=== PATIENT | female | born 1950 | race Caucasian/White ===

== ENCOUNTER 2019-03-10 02:09 | Outpatient (CLI) | payer OTHER, SELFPAY ==
--- NOTE | 2019-03-10 09:18 | DI.MAMMO_ITS ---
SYMPTOM/DIAGNOSIS: SCREENING, Z12.39 MAMMOGRAMS: Mammograms were interpreted according to the usual protocol including computer analysis with CAD system, tomosynthesis and C view imaging. Comparison is made with exams from [id number]. The breasts are composed of scattered fibroglandular densities, breast density, Category B. No suspicious masses or suspicious microcalcifications are seen. There has been no significant change. IMPRESSION: Category 1, negative mammogram. Yearly screening mammography is recommended. [facility] ASSESSMENT OF FINDINGS: Negative. Category 1. Patient will receive a letter notifying them of these results. BI-RADS category B. There are scattered areas of fibroglandular density.
== END 2019-03-10 02:29 ==
PROVIDERS: PCP Nurse Practitioner; Visit Provider Nurse Practitioner
DX: Z12.31 Encounter for screening mammogram for malignant neoplasm of breast (principal)
CPT/HCPCS: 77063; 77067

== ENCOUNTER 2019-08-21 12:53 | Outpatient (REF) | payer OTHER, SELFPAY ==
[2019-08-21 14:24] LABS: ALT 34 U/L (14-59); AST 23 U/L (15-37); Albumin 3.7 g/dL (3.4-5.0); Alkaline Phosphatase 104 U/L (46-116); Anion Gap 7.4 mmol/L (3-11); BUN 15 mg/dL (7-18); Bilirubin, Total 0.5 mg/dL (0.2-1.0); CO2 30.6 mmol/L (21.0-32.0); Calcium 9.2 mg/dL (8.5-10.1); Calculated LDL 79 mg/dL; Chloride 103 mmol/L (98-107); Cholesterol 145 mg/dL (50-200); Glucose 96 mg/dL (70-100); HDL Cholesterol 51 mg/dL (40-60); Potassium 3.7 mmol/L (3.5-5.1); Sodium 141 mmol/L (136-145); Total Protein 6.7 g/dL (6.4-8.2); Triglyceride 75 mg/dL (30-150)
== END 2019-08-21 13:13 ==
LOC: NCHCN 12:53
PROVIDERS: PCP Nurse Practitioner; Visit Provider Nurse Practitioner
DX: I10 Essential (primary) hypertension (principal)
CPT/HCPCS: 80053; 80061

== ENCOUNTER 2019-08-28 22:33 | Outpatient (REF) | payer OTHER, SELFPAY ==
[2019-08-28 18:18] LABS: Bilirubin Negative (Negative); Blood Trace-intact (Negative); Clarity Cloudy (Clear); Glucose Negative (Negative); Ketones Negative (Negative); Leukocyte Esterase Small (Negative); Nitrite Positive (Negative); Specific Gravity 1.015 (1.005-1.025); Urobilinogen 0.2 EU/dL (Up TO 0.2); pH 6.5 (5-8)
[2019-08-28 19:11] LABS: Bacteria Many HPF (Negative); C & S Indicated? Yes; Casts Negative LPF (Negative); Crystals Negative HPF (Negative); Epithelial Cells Few HPF (Negative); Mucus Negative (Negative); Other Cells Negative (Negative); WBC >50 HPF (0-5)
== END 2019-08-28 22:53 ==
LOC: NCHCN 22:33
PROVIDERS: PCP Nurse Practitioner; Visit Provider Nurse Practitioner
DX: R35.0 Frequency of micturition (principal)
CPT/HCPCS: 87077; 81003; 81015; 87086; 87186

== ENCOUNTER 2019-10-06 01:04 | Outpatient (CLI) | payer OTHER, SELFPAY ==
--- NOTE | 2019-10-06 15:58 | DI.DEXA_ITS ---
EXAM: XR DEXA BONE DENSITY W/WO ALIVIA INDICATION: SCREENING FOR OSTEOPOROSIS, Z13.820, OSTEOPENIA, M85.80. COMPARISON: DEXA BONE DENSITY WITH ALIVIA from 11/08/2010 CHEST 2 VIEWS PA,LAT from 10/30/2014 DEXA scan from 2006 and 2010. FINDINGS: The ALIVIA image shows accentuation of the normal thoracic kyphosis. The bone mineral density measureme nts of the lumbar spine correspond to a total T-score of 1.3, in the normal range. This is a signifi cant increase when compared with the previous exams, which is likely secondary to increasing density at L1 and L2 related to degenerative disc changes and endplate sclerosis. The bone mineral density m easurements of the left hip correspond to a total T-score of -1.2 and a femoral neck T-score of -1.4, in the osteopenic range. This is not significantly changed from the previous exams. The right fore arm bone mineral density shows a T-score of the distal 3rd of -0.3, in the normal range. This repres ents an 8 percent decrease when compared with 2011. IMPRESSION: Osteopenia of the left hip. Normal bone mineral density of the lumbar spine and right forearm.
== END 2019-10-06 01:24 ==
PROVIDERS: PCP Nurse Practitioner; Visit Provider Nurse Practitioner
DX: M85.88 Other specified disorders of bone density and structure, other site (principal); M51.37 Other intervertebral disc degeneration, lumbosacral region
CPT/HCPCS: 77080

== ENCOUNTER 2020-03-17 01:09 | Outpatient (CLI) | payer OTHER, SELFPAY ==
--- NOTE | 2020-03-17 15:42 | DI.MAMMO_ITS ---
EXAM: MAMMO SCREENING CLINICAL HISTORY: SCREENING, Z12.39 TECHNIQUE: Mammograms were interpreted according to the usual protocol including computer analysis w ith CAD system, tomosynthesis and C-view imaging. COMPARISON: 2010 through 2018 FINDINGS: The breasts are composed of scattered fibroglandular densities, Breast Density category B. No suspicious masses or suspicious microcalcifications are seen. No skin thickening or abnormal axillary lymph nodes are seen. There has been no significant change from prior exams. IMPRESSION: BI-RADS category 1, yearly screening mammography is recommended. Breast density category B, scattered fibroglandular densities.
== END 2020-03-17 01:29 ==
PROVIDERS: PCP Nurse Practitioner; Visit Provider Nurse Practitioner
DX: Z12.31 Encounter for screening mammogram for malignant neoplasm of breast (principal)
CPT/HCPCS: 77063; 77067

== ENCOUNTER 2021-04-05 18:26 | Outpatient (REF) | payer OTHER, SELFPAY ==
[2021-04-05 20:03] LABS: ALT 32 U/L (14-59); AST 24 U/L (15-37); Albumin 3.8 g/dL (3.4-5.0); Alkaline Phosphatase 99 U/L (46-116); Anion Gap 8.3 mmol/L (3-11); BUN 10 mg/dL (7-18); Bilirubin, Total 0.8 mg/dL (0.2-1.0); CO2 29.7 mmol/L (21.0-32.0); CREATININE 0.8 mg/dL (0.55-1.02); Calcium 9.1 mg/dL (8.5-10.1); Calculated LDL 76 mg/dL (<100); Chloride 104 mmol/L (98-107); Cholesterol 143 mg/dL (<200); Glucose 98 mg/dL (74-106); HDL Cholesterol 52 mg/dL (40-60); Potassium 3.7 mmol/L (3.5-5.1); Sodium 142 mmol/L (136-145); TSH (W/Ref FT4) 1.93 uIU/mL (0.36-3.74); Total Protein 6.9 g/dL (6.4-8.2); Triglyceride 75 mg/dL (<150)
== END 2021-04-05 18:27 | disposition home or self-care (01) ==
LOC: NCHCN 18:26
PROVIDERS: PCP Nurse Practitioner; Visit Provider Nurse Practitioner
DX: E78.5 Hyperlipidemia, unspecified (principal); I10 Essential (primary) hypertension
CPT/HCPCS: 80053; 80061; 84443

== ENCOUNTER 2021-11-15 02:38 | Outpatient (CLI) | payer MEDICARE, SELFPAY ==
--- NOTE | 2021-11-15 | DI.MAMMO_ITS ---
Exam(s) MAMMO SCREENING EXAM: MAMMO SCREENING CLINICAL HISTORY: SCREENING FOR BREAST CANCER Z12.39 TECHNIQUE: Bilateral full field digital CC and MLO mammographic images were obtained with 3D tomosyn thesis and utilizing computer aided detection (CAD). COMPARISON: Available for comparison. FINDINGS: Masses/Architectural Distortion: There is an asymmetric density in the upper right breast on the MLO view which is more prominent compared to prior examinations. There is also an asymmetric density in the medial left breast on the craniocaudad view centrally. This also appears more prominent compared to the prior examination. These area should be further evaluated with spot compression views. Ultr asound may be indicated at that time. Microcalcifications: No suspicious pleomorphic-type are seen. Skin Thickening/Nipple Retraction: None. IMPRESSION: 1. Asymmetric densities in the right left breast as described above. These area should be further ev aluated with spot compression views. 2. Ultrasound may be indicated at that time. BI-RADS Category 0 - Assessment Incomplete: Need additional imaging evaluation Breast Density - Category B - Scattered areas of fibroglandular density Breast density category C or D implies that the patient has dense breast tissue. Dense breast tissue is very common and is not abnormal but dense breast tissue can make it harder to find cancer on a ma mmogram. Also, dense breast tissue may increase their breast cancer risk. This information about the result of the mammogram report was provided to the patient to raise their awareness. Use this report when you speak with the patient about their risks for breast cancer, which includes their family hist ory. At that time, you may recommend for more screening tests (Ultrasound or MRI) as they might be us eful based on their risk. A negative radiographic report should not delay biopsy if a dominant or clinically suspicious mass is present. Up to ten percent of cancers are not identified on mammography. A negative report may reinforce clinical impression. Adenosis and dense breasts may obscure an underlying neoplasm. False positive reports average 6 to 10%. Patient will receive a letter notifying them of these results.
== END 2021-11-15 02:58 ==
PROVIDERS: PCP Nurse Practitioner Family; Visit Provider Nurse Practitioner
DX: Z12.31 Encounter for screening mammogram for malignant neoplasm of breast (principal); R92.8 Other abnormal and inconclusive findings on diagnostic imaging of breast
CPT/HCPCS: 77063; 77067

== ENCOUNTER 2021-12-02 01:02 | Outpatient (CLI) | payer MEDICARE, SELFPAY ==
--- NOTE | 2021-12-02 | DI.US_ITS ---
Exam(s) US BREAST RT LIMITED MG MAMMO SCREEN CALL BACK BI EXAM: MG MAMMO SCREEN CALL BACK BI and U/S breast RT limited CLINICAL HISTORY: F/U MAMMO,BILAT ASYMMETRIC DENSITIES. TECHNIQUE: Craniocaudal and mediolateral oblique Full Field Digital Mammography views of the right b reast with Computer Aided Diagnosis followed by Tomosynthesis and right breast ultrasound. COMPARISON: Comparison is made with prior examinations. FINDINGS: Mammography/Tomosynthesis: Masses/Architectural Distortion: None seen. Microcalcifictions: No suspicious pleomorphic-type are seen. Skin Thickening/Nipple Retraction: None. Limited right breast breast US: Echotexture: Normal appearance of the glandular tissue. Shadowing: There is a shadowing echogenic focus at the 11 o'clock position of the right breast 5 cm f rom the nipple which corresponds to a calcification on the mammogram. Cyst: There is a cluster of cysts at the 9 o'clock position of the right breast 8 cm from the nipple measuring 0.7 in aggregate. Solid lesions: None seen. Ductal dilation: None. IMPRESSION: 1. No evidence of malignancy is noted. 2. Unless there is more urgent need, follow-up screening mammography is recommended, as per [employer] guidelines. 3. The findings were discussed with the patient on the date of the examination. BI-RADS Category 2 - Benign Findings Breast Density - Category B - Scattered areas of fibroglandular density Breast density Category C or D implies that the patient has dense breast tissue. Dense breast tissue can make it harder to find cancer on a mammogram. Dense breast tissue is also associated with an incr eased risk of breast cancer. This information about the result of the mammogram report was provided to the patient to raise their awareness. Use this report when you speak with the patient about their risks for breast cancer, which includes their family history. At that time, you may recommend additional screening tests (Ultrasoun d or MRI) as these tests may add significant information. A negative radiographic report should not delay biopsy if a dominant or clinically suspicious mass is present. Up to ten percent of cancers are not identified on mammography. A negative report may reinforce clinical impression. Adenosis and dense breasts may obscure an underlying neoplasm. False positive reports average 6 to 10%. Patient will receive a letter notifying them of these results.
== END 2021-12-02 01:22 ==
LOC: DI 01:02
PROVIDERS: PCP Nurse Practitioner Family; Visit Provider Nurse Practitioner
DX: Z12.31 Encounter for screening mammogram for malignant neoplasm of breast (principal); R92.8 Other abnormal and inconclusive findings on diagnostic imaging of breast; N60.11 Diffuse cystic mastopathy of right breast; N60.81 Other benign mammary dysplasias of right breast
CPT/HCPCS: 76642; 77063; 77067

== ENCOUNTER 2022-10-09 08:04 | Emergency (ER) | payer MEDICARE, SELFPAY ==
[2022-10-09] VITALS (24 sets, daily range): BP systolic 117–176; BP diastolic 66–111; PULSE 65–92; RESP 9–22; TEMP 37–38; O2SAT 95–98
--- NOTE | 2022-10-09 08:00 | RT.EKG_ITS ---
APPROVED REPORT Exam: Resting ECG Reason for Exam: syncope Patient Location: E HR:73 bpm ECG Measurements Heart Rate 73 AXIS AZ 146 P 48 QRSd 95 QRS 38 QT 392 T 34 QTc 433 Conclusion Sinus rhythm...normal P axis, V-rate 60- 99 Probable left atrial enlargement...P >50mS, <-0.10mV V1 Low voltage, precordial leads...precordial leads <1.0mV
--- NOTE | 2022-10-09 08:15 | DI.CT_ITS ---
Exam(s) CT HEAD WO EXAM: CT HEAD WO CLINICAL HISTORY: fall, struck head. TECHNIQUE: Imaging Protocol: Axial computed tomography images with coronal and sagittal reformatted images were created and reviewed COMPARISON: No exams were available for comparison FINDINGS: Ventricles and Extra axial spaces: Normal in size and morphology for the patient's age. Hemorrhage: None. Cerebral parenchyma: Normal. Midline shift: None. Brainstem/Cerebellum: Normal. Calvarium: Normal. Visualized Paranasal sinuses/Mastoids: Clear. Soft Tissues: Unremarkable. IMPRESSION: No acute intracranial process. RADIATION DOSE DELIVERED: 717.21mGy.cm Total DLP DATA REPOSITORY: All CT scans at this facility are submitted to the National Radiology Data Registry (NRDR) Dose Index Registry (DIR) with the [employer] (A[employer]). RADIATION OPTIMIZATION: All CT scans at this facility use at least one of these dose optimization te chniques: automated exposure control; mA and/or kV adjustment per patient size (includes targeted exa ms where dose is matched to clinical indication); or iterative reconstruction.
--- NOTE | 2022-10-09 08:30 | DI.RAD_ITS ---
Exam(s) XR CHEST 2V PA LATERAL EXAM: XR CHEST 2V PA LATERAL CLINICAL HISTORY: covid+, syncopal episode TECHNIQUE: 2D digital imaging was performed. COMPARISON: CR CHEST 2 VIEWS PA,LAT from 10/30/2014 FINDINGS: HEART: Normal size. Aorta: Not dilated. PULMONARY VASCULATURE: Normal. LUNGS: Clear. PLEURAL SPACE: No pleural effusion or pneumothorax. BONE:Unremarkable for age. IMPRESSION: No acute abnormality. DATA REPOSITORY: RADIATION DOSE DELIVERED:
--- NOTE | 2022-10-09 08:35 | ED.GENADUL_ITS ---
Discharge Plan Disposition Patient Disposition: Home Condition: Improving Discharge Details Clinical Impression: COVID, Acute dehydration, Orthostatic hypotension, Hypokalemia Primary Care Provider: SERGIO MILLER ED Provider: Kaitlynn Lewis Home Meds and New Rx's Prescriptions: Continued aspirin 81 MG tablet,chewable 162 mg PO DAILY alendronate 35 MG tablet 35 mg PO DIRECTED Label Comments: weekly acyclovir 15 GM ointment 1 applic Topical PRN PRN lisinopril 10 MG tablet 10 mg PO DAILY omeprazole 20 MG capsule,delayed release(DR/EC) 20 mg PO DAILY hydrochlorothiazide 25 MG tablet 25 mg PO DAILY atorvastatin 10 mg tablet 10 mg PO DAILY Label Comments: TAKE 1 TABLET BY MOUTH ONCE DAILY triamcinolone acetonide 0.1 % cream 1 applic TOPICAL PRN PRN Label Comments: APPLY A SMALL AMOUNT TO SKIN TWICE DAILY Discharge Instructions Instructions: Dehydration (ED), COVID-19 (Coronavirus Disease 2019) (ED) Additional Instructions: The episode today was likely associated with dehydration from you being sick with COVID. Please encourage hydration. Please continue to treat your symptoms with Tylenol and/or ibuprofen to help with symptomatic management that should allow you to hydrate and mobilize more. please continue with Paxlovid as prescribed. Please follow-up with your primary care provider in the next 1 to 2 weeks for reevaluation. If you develop shortness of breath, difficulty breathing, inability stay hydrated or other new/worsening symptom please seek care urgently once again. Referrals: SERGIO MILLER, PRODUCTION [employer] [Primary Care Provider] - Discharge Data Discharge Date/Time-TO BE ENTERED AT DEPARTURE: 10/09/22 16:08 Medical Decision Making Patient is a pleasant 72-year-old female presenting today with chief complaint of fall. She reports that she is known COVID-positive, was diagnosed 3 days ago. States since then she is been very fatigued, general body aches, and generalized weakness. States that this morning she got up from bed and immediately went into the kitchen to medicate her cat. States that she began feeling more weak and warm. She denies any chest pain or palpitations. States that she then fell over striking the back right of her head. Did not actually completely lose consciousness and does remember the event that felt like she was about to pass out. States that she had has had this happen to her 1 other time when she had the flu. States he does have a headache now. No visual changes. No nausea or vomiting. Denies any midline neck tenderness. Denies any chest pain or shortness of breath. No history of DVT. On exam, patient appears nontoxic. Her vital signs are stable. She does have a history of hypertension slightly elevated. Did not take her medications today. She appears dehydrated. Lungs are clear. Normal cardiac exam. She does have a 3 cm area of swelling on the posterior right scalp. No break in the skin. No palpable skull fractur, hemotympanums, price sign. She has no midline C-spine tenderness and full range of motion. No pain elsewhere about the back ECG obtained and reviewed by Dr. Vera. No acute ischemic changes or arrythmia noted. Patient does not have any lower extremity pain, swelling, calf tenderness. She does not have any history of DVT. No recent travel or episodes of being sedentary. She not had any shortness of breath or pleuritic pain. At this time, I do not see indication of PE being the source of her syncope. More consistent with orthostatic hypotension likely dehydration. However, given age and acute illness, will obtain baseline blood work. Did consider ACS although I find this less liekly. Will obtain head CT after her traumatic fall. HEART: Normal size.? Aorta: Not dilated. PULMONARY VASCULATURE: Normal. LUNGS: Clear. ? PLEURAL SPACE: No pleural effusion or pneumothorax. BONE:Unremarkable for age.? IMPRESSION: No acute abnormality.? FINDINGS: Ventricles and Extra axial spaces: Normal in size and morphology for the patient's age. Hemorrhage: None. Cerebral parenchyma: Normal. Midline shift: None. Brainstem/Cerebellum: Normal. Calvarium: Normal. Visualized Paranasal sinuses/Mastoids: Clear. Soft Tissues: Unremarkable. IMPRESSION: No acute intracranial process .Labs rerviewed, mild hypokalemia. Will rreplenish orally. No other acute abnromality. Troponin negative x2. Orthostatics positive. She is feeling much improved after fluids. She did have an elevated temp which is downtrending with antipyretics. She was initially very hesitant to try any analgesics or antipyretics but her feeling of lightheadedness with standing did improve after hydration and treating her discomfort and fever. At this time, patient feels safe to go home. She lives with who will be able to be with her when she gets up suddenly again and assist with safety. Strict rreturn precautions discussed. Advised f/u with PCP in 1-2 weeks for reevaluation. All of her questions and concerns were addressed, she is in agreement with this plan. States patient is orthostatic HPI General Date/Time Provider Initiated Documentation: 10/09/22 08:05 . Limitations to Documentation: no limitations . Information obtained by: patient and RN notes reviewed . History of Present Illness 72 year old F presents to the emergency department with the chief complaint of COVID +, near syncopal episode, struck head, described as moderate, Quality is described as aching, and is localized to the head. Patient reports no radiation. Patient started experiencing this minute(s) an d it has been constant. No relieving factors improve symptom(s), Other factors that worsen symptoms (stood up quickly from bed, has had similar episode in ) . Patient notes cough, fever/chills, headaches, malaise and syncope; denies confusion, chest pain, nausea/vomiting, rash, shortness of breath and weakness. Patient did receive the following treatments prior to arrival, none Related Data Home Medications Medication Instructions Recorded Confirmed acyclovir 5 % topical ointment 1 applic topical PRN PRN 10/30/14 10/09/22 alendronate 35 mg tablet 35 mg PO DIRECTED 10/30/14 04/16/17 hydrochlorothiazide 25 mg tablet 25 mg PO DAILY 10/30/14 10/09/22 lisinopril 10 mg tablet 10 mg PO DAILY 10/30/14 04/16/17 omeprazole 20 mg capsule,delayed 20 mg PO DAILY 10/30/14 10/09/22 release aspirin 81 mg chewable tablet 162 mg PO DAILY 03/22/17 10/09/22 atorvastatin 10 mg tablet 10 mg PO DAILY 10/09/22 10/09/22 triamcinolone acetonide 0.1 % 1 applic topical PRN PRN 10/09/22 10/09/22 topical cream Allergies Allergy/AdvReac Type Severity Reaction Status Date / Time adhesive Allergy Mild Skin Rash Unverified 10/09/22 08:17 latex Allergy Mild Skin Rash Unverified 10/09/22 08:17 povidone-iodine Allergy Mild Skin Rash Unverified 10/09/22 08:17 [From Betadine] soap [From Betadine] Allergy Mild Skin Rash Unverified 10/09/22 08:17 General Stated Complaint: [id number] PAULETTE: 3 Review of Systems Constitutional Constitutional: Reports as per HPI Eyes Eyes: Reports as per HPI, Denies eye discharge and Denies irritation ENT Ears, Nose, Mouth, and Throat: Reports as per HPI Cardiovascular Cardiovascular: Reports as per HPI, Denies chest pain and Denies dyspnea Respiratory Respiratory: Reports as per HPI and Denies dyspnea Gastrointestinal Gastrointestinal: Reports as per HPI, Denies abdominal pain, Denies change in bowel habits, Denies nausea and Denies vomiting Integumentary/Breasts Skin/Breast: Reports as per HPI and Denies rash Neurologic Neurologic: Reports as per HPI PFSH All Active Problems (Updated 10/09/22 @ 15:47 by TEJAL Lindsay) COVID (Acute) Acute dehydration (Acute) Orthostatic hypotension (Acute) Hypokalemia (Acute) Tinnitus, bilateral (Acute) Asymmetrical sensorineural hearing loss (Acute) Surgical History (Updated 08/07/18 @ 14:34 by [employer] [place]) Colonoscopy - IV Sedation (04/16/17) Vaginal hysterectomy Social History Smoking/Tobacco Use Status: Never Smoking risk assessment performed?: Yes Alcohol Intake: current Alcohol Intake frequency: holidays/special occasions only Drug use: Never Substance use type: does not use Do you feel safe at home: Yes Do you feel safe in your relationship?: Yes Exam Const General: cooperative, healthy appearing, comfortable, no acute distress, well developed and well groomed Nutritional Appearance: average body habitus and well nourished Orientation: alert and awake [facility] Head: normal to inspection, normocephalic, no Price's sign, contusion right occipital, no lacerations, no occipital foramen tenderness, no palpable skull fracture, no raccoon eyes, scalp tenderness and No periorbital ecchymosis Ears: hearing grossly normal bilaterally, external ears normal and TM's normal bilaterally General nose exam: external nose normal and nares normal Face and sinus: normal facial exam, sinuses nontender and face symmetric Mouth: oral mucosae normal, lip normal, tongue normal, oropharynx normal and moist mucous membranes Teeth and gingiva: dentition normal Throat: posterior oropharynx normal, tonsils normal and uvula midline Eyes General: appearance normal, both eyes and all related structures Visual Berg: normal visual berg by confrontation Alignment and Position: alignment normal Pupils: PERRL, normal by confrontation and accommodation normal EOM: EOM intact bilaterally Neck Neck: normal visual inspection, full ROM, no lymphadenopathy and no meningeal signs Resp Effort & Inspection: normal respiratory effort, able to speak in complete sentences and no respiratory distress Auscultation: clear to auscultation bilaterally, no rales, no rhonchi and no wheezes Cardio Rate: regular rate Rhythm: regular rhythm Heart Sounds: S1 normal and S2 normal Back/Spine/Pelvis Cervical Spine: normal cervical lordosis, cervical ROM normal, No cervical m uscular tenderness, No pain with cervical ROM, No cervical spinal tenderness and No step off deformity Thoracic/Lumbar Spine: thoracic and lumbar spine normal to inspection Skin General skin exam: no rashes or lesions noted Neuro General: patient alert and patient awake Cranial Nerves: CN's II-XI intact bilaterally Cognition: normal cognition Speech: speech normal Gait: normal gait Motor: muscle tone normal throughout, strength 5/5 throughout, no pronator drift and no movement abnormalities noted Sensory Exam: no sensory deficits noted Coordination: [id number] test normal and [id number] test normal Psych Appearance: grossly normal and well kempt Mental Status: mental status grossly normal Speech and Movement: speech and movement normal Course Vital Signs Vital signs: Vital Signs Temperature 37 C 10/09/22 08:13 Pulse 76 10/09/22 08:13 Respiratory Rate 18 10/09/22 08:13 Blood Pressure 141/66 H 10/09/22 08:13 Pulse Oximetry 95 10/09/22 08:13 Temperature 37 C 10/09/22 08:13 Temperature Source Temporal Artery Scan 10/09/22 08:13 Pulse 76 10/09/22 08:13 Respiratory Rate 18 10/09/22 08:21 Respiratory Effort Non-Labored 10/09/22 08:21 Respiratory Depth Normal 10/09/22 08:21 Blood Pressure 141/66 H 10/09/22 08:13 Blood Pressure Position Sitting 10/09/22 08:13 Pulse Oximetry 95 10/09/22 08:13 Oxygen Delivery Method Room Air 10/09/22 08:13 Oxygen Flow Rate 0 10/09/22 08:13 PAWSS Have you Been Recently Intoxicated or Drunk Within the Last 30 days?: No Have you Ever Experienced Previous Episodes of Alcohol Withdrawal?: No Have you ever Experienced Withdrawal Seizures?: No Have you ever Experienced Delirium Tremens(DT)s?: No Have you ever undergone Alcohol Rehabilitation Treatment (i.e, inpt ot outpatient treatment programs)?: No Have you ever Experienced Blackouts?: No Have you ever Combined Alcohol with other Downers within the last 90 days?: No Have you ever Combined Alcohol with any other Substance of Abuse during the last 90 days?: No Positive Blood Alcohol level on Presentation? [PCS.BAL]: No Evidence of Increased Autonomic Activity (i.e. HR>120, tremor, sweating, agitation, nausea)?: No Result: 0
[2022-10-09] MEDS: Lactated Ringers 1,000 ML 1000 ML IV ×2 (08:53→11:43)
[2022-10-09 08:55] LABS: Abs Immature Grans 0.03 10^3/uL (0.0-0.06); Absolute Basophil Count 0.04 10^3/uL (0.0-0.2); Absolute Eosinophil Count 0.04 10^3/uL (0.0-0.7); Absolute Lymphocyte Count 0.77 10^3/uL (1.2-3.4); Absolute Monocyte Count 0.72 10^3/uL (0.1-0.8); Absolute Neutrophil Count 5.66 10^3/uL (1.2-6.7); Basophils % 0.6; Eosinophils % 0.6; HCT 38.9 % (36.0-46.0); HGB 12.9 g/dL (11.2-15.7); Immature Grans % 0.4; Lymphocytes % 10.6; MCH 29.6 pg (27.0-33.0); MCHC 33.2 % (32.0-36.0); MCV 89 fL (80-95); MPV 9.2 fL (8.0-11.0); Monocytes % 9.9; Neutrophils % 77.9; Platelet Count 248 10^3/uL (130-400); RBC 4.36 10^6/uL (3.93-5.22); RDW 12.1 % (11.7-14.6); RDW-SD 39.8 fL; WBC 7.26 10^3/uL (4.4-10.8)
[2022-10-09 09:35] LABS: ALT 33 U/L (14-59); AST 31 U/L (15-37); Albumin 3.5 g/dL (3.4-5.0); Alkaline Phosphatase 92 U/L (46-116); Anion Gap 7.8 mmol/L (3-11); BUN 12 mg/dL (7-18); CO2 30.2 mmol/L (21.0-32.0); Calcium 8.8 mg/dL (8.5-10.1); Chloride 100 mmol/L (98-107); Estimated GFR 59.49 (mL/min/1.73m2); Glucose 113 mg/dL (74-106); Magnesium 1.9 mg/dL (1.8-2.4); Potassium 3.3 mmol/L (3.5-5.1); Sodium 138 mmol/L (136-145); Troponin I < 50 ng/L (<or=60)
[2022-10-09] MEDS: Potassium Chloride 20 MEQ TABCR PO (09:58)
[2022-10-09 13:08] LABS: Troponin I < 50 ng/L (<or=60)
[2022-10-09] MEDS: Acetaminophen 500 MG TAB 1000 MG PO (13:48)
[2022-10-09] MEDS: Ibuprofen 600 MG TAB PO (15:32)
== END 2022-10-09 16:08 | disposition home or self-care (01) ==
PROVIDERS: Emergency Provider Physician Assistant; PCP Nurse Practitioner Family
DX: U07.1 COVID-19 (principal); E86.0 Dehydration; I95.1 Orthostatic hypotension; E87.6 Hypokalemia; I10 Essential (primary) hypertension; S00.03XA Contusion of scalp, initial encounter; W19.XXXA Unspecified fall, initial encounter; W22.8XXA Striking against or struck by other objects, initial encounter
CPT/HCPCS: 36415; 80053; 93005; 96360; 96361; 99284; 70450; 71046; 83735; 84484; 85025; 93010

== ENCOUNTER 2023-04-16 13:26 | Outpatient (REF) | payer MEDICARE, SELFPAY ==
[2023-04-16 16:45] LABS: COMMENT (LAB VIEW ONLY) 91.45 mg/dL; Microalb ug/mg Crea 7.2 ug/mg Cr
== END 2023-04-16 13:27 | disposition home or self-care (01) ==
LOC: NCHCN 13:26
PROVIDERS: PCP Nurse Practitioner Family; Visit Provider Nurse Practitioner Family
DX: Z00.00 Encounter for general adult medical examination without abnormal findings (principal)
CPT/HCPCS: 82043; 82570

== ENCOUNTER 2023-12-10 18:05 | Outpatient (REF) | payer MEDICARE, SELFPAY ==
[2023-12-10 18:34] LABS: ALT 24 U/L (14-59); AST 24 U/L (15-37); Albumin 3.9 g/dL (3.4-5.0); Alkaline Phosphatase 93 U/L (46-116); Anion Gap 8.6 mmol/L (3-11); BUN 8 mg/dL (7-18); Bilirubin, Total 0.8 mg/dL (0.2-1.0); CO2 29.4 mmol/L (21.0-32.0); CREATININE 0.8 mg/dL (0.55-1.02); Calcium 9.6 mg/dL (8.5-10.1); Calculated LDL 84 mg/dL (<100); Chloride 102 mmol/L (98-107); Cholesterol 152 mg/dL (<200); Estimated GFR 77.27 (mL/min/1.73m2); Glucose 102 mg/dL (74-106); HDL Cholesterol 56 mg/dL (40-60); Sodium 140 mmol/L (136-145); Total Protein 7.1 g/dL (6.4-8.2); Triglyceride 62 mg/dL (<150)
== END 2023-12-10 18:06 | disposition home or self-care (01) ==
LOC: NCHCN 18:05
PROVIDERS: PCP Nurse Practitioner Family; Referring Provider Nurse Practitioner Family; Visit Provider Nurse Practitioner Family
DX: E78.5 Hyperlipidemia, unspecified (principal); I10 Essential (primary) hypertension
CPT/HCPCS: 80053; 80061

== ENCOUNTER → 2023-12-12 01:03 | Outpatient (CLI) | payer MEDICARE, SELFPAY ==
--- NOTE | 2023-12-12 | DI.MAMMO_ITS ---
Exam(s) MAMMO SCREENING EXAM: MAMMO SCREENING CLINICAL HISTORY: SCREENING, Z12.39. TECHNIQUE: Bilateral full field digital CC and MLO mammographic images were obtained with 3D tomosyn thesis and utilizing computer aided detection (CAD). COMPARISON: Prior mammograms were reviewed. FINDINGS: There has been no significant change in the appearance and distribution of the fibroglandular tissue. There are no new spiculated masses nor malignant appearing microcalcification groups. There is no significant architectural distortion nor skin thickening-retraction. IMPRESSION: No radiographic evidence of malignancy. BI-RADS Category 1 - Negative Breast Density - Category B - Scattered areas of fibroglandular density Breast density Category C or D implies that the patient has dense breast tissue. Dense breast tissue can make it harder to find cancer on a mammogram. Dense breast tissue is also associated with an incr eased risk of breast cancer. This information about the result of the mammogram report was provided to the patient to raise their awareness. Use this report when you speak with the patient about their risks for breast cancer, which includes their family history. At that time, you may recommend additional screening tests (Ultrasoun d or MRI) as these tests may add significant information. A negative radiographic report should not delay biopsy if a dominant or clinically suspicious mass is present. Up to ten percent of cancers are not identified on mammography. A negative report may reinforce clinical impression. Adenosis and dense breasts may obscure an underlying neoplasm. False positive reports average 6 to 10%. Patient will receive a letter notifying them of these results.
== END ==
PROVIDERS: PCP Nurse Practitioner Family; Visit Provider Nurse Practitioner Family
DX: Z12.31 Encounter for screening mammogram for malignant neoplasm of breast (principal)
CPT/HCPCS: 77063; 77067

== ENCOUNTER → 2024-04-08 08:44 | Outpatient (BNVA) | payer MEDICARE, SELFPAY | PROVIDERS: PCP Nurse Practitioner Family; Referring Provider Nurse Practitioner Family; Visit Provider Podiatrist | DX: B35.1 Tinea unguium (principal); L60.3 Nail dystrophy | CPT/HCPCS: 99214 ==

== ENCOUNTER → 2024-08-05 09:19 | Outpatient (BNVA) | payer MEDICARE, SELFPAY | PROVIDERS: PCP Nurse Practitioner Family; Referring Provider Nurse Practitioner Family; Visit Provider Podiatrist | DX: L60.3 Nail dystrophy (principal); B35.1 Tinea unguium; M79.671 Pain in right foot; M79.672 Pain in left foot; L84 Corns and callosities | CPT/HCPCS: 11056; 11720 ==

== ENCOUNTER → 2024-12-02 09:15 | Outpatient (BNVA) | payer MEDICARE, SELFPAY | PROVIDERS: PCP Nurse Practitioner Family; Referring Provider Nurse Practitioner Family; Visit Provider Podiatrist | DX: L60.3 Nail dystrophy (principal); B35.1 Tinea unguium; M79.671 Pain in right foot; M79.672 Pain in left foot | CPT/HCPCS: 99214 ==

== ENCOUNTER 2024-12-11 11:51 | Outpatient (REF) | payer MEDICARE, SELFPAY ==
[2024-12-11 15:17] LABS: ALT 27 U/L (14-59); AST 22 U/L (15-37); Albumin 3.9 g/dL (3.4-5.0); Alkaline Phosphatase 103 U/L (46-116); Anion Gap 3.7 mmol/L (3-11); BUN 12 mg/dL (7-18); Bilirubin, Total 0.75 mg/dL (0.2-1.0); CO2 31.3 mmol/L (21.0-32.0); CREATININE 0.7 mg/dL (0.55-1.02); Calcium 9.4 mg/dL (8.5-10.1); Chloride 101 mmol/L (98-107); Estimated GFR 90.14 (mL/min/1.73m2); Glucose 95 mg/dL (74-106); Potassium 3.9 mmol/L (3.5-5.1); Sodium 136 mmol/L (136-145); Total Protein 6.8 g/dL (6.4-8.2)
== END 2024-12-11 11:52 | disposition home or self-care (01) ==
LOC: NCHCN 11:51
PROVIDERS: PCP Nurse Practitioner Family; Visit Provider Nurse Practitioner Family
DX: I10 Essential (primary) hypertension (principal)
CPT/HCPCS: 80053

== ENCOUNTER 2024-12-12 08:32 | Outpatient (CLI) | payer MEDICARE, SELFPAY ==
--- NOTE | 2024-12-12 | DI.RAD_ITS ---
Exam(s) XR HIP LT COMPLETE AP PELVIS EXAM: XR HIP LT COMPLETE AP PELVIS CLINICAL HISTORY: LT HIP PAIN, M25.552, LOW BACK PAIN, FAILED PT,? ARTHRITIS. TECHNIQUE: 2D digital imaging was performed. COMPARISON: No exams were available for comparison FINDINGS: Two views No evidence of pelvic nor hip fractures. Additional frog-lateral view of the left hip reveals no jason nt space narrowing but a tiny osteophyte on the femoral head side. Bone density is normal. No osseous lesions. No evidence of avascular necrosis. Sacroiliac joints a ppear unremarkable. IMPRESSION: Mild degenerative changes in the left hip DATA REPOSITORY: RADIATION DOSE DELIVERED:
== END 2024-12-12 08:52 ==
PROVIDERS: PCP Nurse Practitioner Family; Visit Provider Nurse Practitioner Family
DX: M16.12 Unilateral primary osteoarthritis, left hip (principal)
CPT/HCPCS: 73502

== ENCOUNTER → 2025-01-26 09:12 | Outpatient (BNVA) | payer MEDICARE, SELFPAY | PROVIDERS: PCP Nurse Practitioner Family; Referring Provider Nurse Practitioner Family | DX: M70.62 Trochanteric bursitis, left hip (principal) | CPT/HCPCS: 20610; 99213; J1010 ==

== ENCOUNTER → 2025-03-23 08:41 | Outpatient (BNVA) | payer MEDICARE, SELFPAY | PROVIDERS: PCP Nurse Practitioner Family; Referring Provider Nurse Practitioner Family; Visit Provider Student in an Organized Health Care Education/Training Program | DX: M70.62 Trochanteric bursitis, left hip (principal); M25.852 Other specified joint disorders, left hip | CPT/HCPCS: 99213 ==

== ENCOUNTER → 2025-03-31 09:38 | Outpatient (BNVA) | payer MEDICARE, SELFPAY | PROVIDERS: PCP Nurse Practitioner Family; Referring Provider Nurse Practitioner Family; Visit Provider Podiatrist | DX: L60.3 Nail dystrophy (principal); B35.1 Tinea unguium; M79.671 Pain in right foot; M79.672 Pain in left foot | CPT/HCPCS: 99213 ==

== ENCOUNTER 2025-04-16 00:42 | Outpatient (CLI) | payer MEDICARE, SELFPAY ==
--- NOTE | 2025-04-16 07:30 | DI.MRI_ITS ---
Exam(s) MR LOWER JOINT LT WO EXAM: MR LOWER JOINT LT WO CLINICAL HISTORY: PAIN,FEMORAL ACETABULAR IMPINGEMENT, LT HIP TROCHANTERIC BURSITIS TECHNIQUE: Multiplanar multisequence MRI of Pelvis was performed COMPARISON: US ABDOMEN ULTRASOUND from 10/13/2008 CR XR HIP LT COMPLETE AP PELVIS from 12/12/2024 FINDINGS: Bones: There is no fracture or contusion pattern. No bone marrow edema is seen. Joints: There are small bilateral symmetric hip joint effusions. The SI joints and symphysis pubis are well maintained. Musculotendinous structures: Musculotendinous structures demonstrate no abnormality. There is fluid adjacent to both greater trochanters which could indicate trochanteric bursitis. There is edema within the left distal gluteus medius tendon which could indicate partial tear versus tendinitis. There also appears a mildly increased signal within the distal muscle. Intrapelvic structures: Hysterectomy. Simple appearing cyst in the left adnexal region measuring 2.4 by 3 cm. IMPRESSION: Partial tear versus tendinitis of the gluteus medius. Small bilateral joint effusions. Small amount of fluid adjacent to both greater trochanters could indicate trochanteric bursitis. 3 centimeter left ovarian cyst appears simple. Pelvic ultrasound follow-up could be considered. DATA REPOSITORY:
== END 2025-04-16 01:02 ==
PROVIDERS: PCP Nurse Practitioner Family; Visit Provider Student in an Organized Health Care Education/Training Program
DX: M25.852 Other specified joint disorders, left hip (principal); M70.62 Trochanteric bursitis, left hip
CPT/HCPCS: 73721

== ENCOUNTER → 2025-04-20 08:03 | Outpatient (BNVA) | payer MEDICARE, SELFPAY | PROVIDERS: PCP Nurse Practitioner Family; Referring Provider Nurse Practitioner Family; Visit Provider Student in an Organized Health Care Education/Training Program | DX: M70.62 Trochanteric bursitis, left hip (principal) | CPT/HCPCS: 99213 ==

== ENCOUNTER → 2025-05-05 13:18 | Outpatient (BNVA) | payer MEDICARE, SELFPAY | PROVIDERS: PCP Nurse Practitioner Family; Referring Provider Nurse Practitioner Family; Visit Provider Student in an Organized Health Care Education/Training Program | DX: M70.62 Trochanteric bursitis, left hip (principal); M76.32 Iliotibial band syndrome, left leg; I10 Essential (primary) hypertension | CPT/HCPCS: 99214 ==

== ENCOUNTER 2025-06-12 06:04 | Day surgery (SDC) | payer MEDICARE, SELFPAY ==
[2025-06-12] VITALS (21 sets, daily range): BP systolic 110–209; BP diastolic 47–83; PULSE 48–68; RESP 8–18; TEMP 36.1–36.6; O2SAT 93–100; BMI 29.4
[2025-06-12] MEDS: Lactated Ringers 1,000 ML 30 ML IV (06:48)
--- NOTE | 2025-06-12 07:05 | W.ANESPRE ---
General Info Date of Service Date Performed: 06/12/25 Height: 5 ft 3.5 in Weight: 76.6 kg Body Mass Index (BMI): 29.4 Surgical Procedure: Operation Date: 06/12/25 07:50 Proposed Procedure Side Surgeon p Endoscopic Iliotibial Band Release w/Trochanteric Bursectomy, Possible Gluteal Tendon Release Left Armaan Barrientos MD Actual Procedure Side Surgeon p Endoscopic Iliotibial Band Release w/Trochanteric Bursectomy, Possible Gluteal Tendon Release Left Armaan Barrientos MD Pre-Op Diagnosis Post-Op Diagnosis 1. Trochanteric bursitis, left hip 2. Iliotibial band syndrome affecting left lower leg Meds Allergies and Home Medications Allergies Allergy/AdvReac Type Severity Reaction Status Date / Time adhesive Allergy Mild Skin Rash Verified 06/12/25 07:27 latex Allergy Mild Skin Rash Verified 06/12/25 07:27 povidone-iodine (From Allergy Mild Skin Rash Verified 06/12/25 07:27 Betadine) soap (From Betadine) Allergy Mild Skin Rash Verified 06/12/25 07:27 Home Medication ?Medication ?Instructions ?Recorded hydrochlorothiazide 25 mg tablet 25 mg PO DAILY 10/30/14 omeprazole 20 mg capsule,delayed 20 mg PO DAILY 10/30/14 release atorvastatin 10 mg tablet 10 mg PO DAILY 10/09/22 triamcinolone acetonide 0.1 % 1 applic topical PRN PRN 10/09/22 topical cream cholecalciferol (vitamin D3) 25 25 mcg PO DAILY 03/14/24 mcg (1,000 unit) capsule diclofenac sodium 1 % topical gel 2 g topical QID 03/14/24 (Arthritis Pain (diclofenac)) varicella-zoster glycoE [id number] 0.5 ml IM ONCE 03/14/24 adj(PF) 50 mcg/0.5 mL IM susp, kit (Shingrix (PF)) ketoconazole 2 % topical cream 1 applic topical DAILY #120 grams 04/08/24 varicella-zoster glycoE vacc-[id number] 0.5 ml IM ONCE 08/04/24 adj(PF) 50 mcg/0.5 mL IM susp, kit (Shingrix (PF)) Current Visit Medications: Current Medications Generic Name Dose Route Start Last Admin Trade Name Freq PRN Reason Stop Dose Admin Ringer's Solution 1,000 mls @ 30 mls/hr 06/12/25 06:00 06/12/25 06:48 IV 07/11/25 23:59 30 mls/hr INFUSION SANDEE Administration Cefazolin Sodium/Dextrose 2 gm in 50 mls @ 100 mls/hr 06/12/25 06:00 Ancef Duplex IVPB 07/11/25 23:59 PREOP SANDEE Tranexamic Acid/Sodium Chloride 1,000 mg in 100 mls @ 600 mls/hr 06/12/25 06:00 IVPB 07/11/25 23:59 PREOP SANDEE IV Miscellaneous Supplies 1 each 06/12/25 06:00 Iv Access IV 07/11/25 23:59 DIRECTED SANDEE Sodium Chloride 0 ml 06/12/25 06:00 Normal Saline Flush 10 Ml Syr IV 07/11/25 23:59 PRN PRN Sodium Chloride 0 ml 06/12/25 06:00 Normal Saline 10 Ml Vial IJ 07/11/25 23:59 DIRECTED PRN Sterile Water 0 ml 06/12/25 06:00 Water,Injection,Sterile 10 Ml Vial IJ 07/11/25 23:59 DIRECTED PRN PFSH Active Problems Active Problems: Problem Status Onset Code Iliotibial band syndrome affecting left lower leg Acute M76.32 Femoral acetabular impingement Acute M25.859 Trochanteric bursitis, left hip Acute M70.62 Osteopenia of left hip Acute M85.852 Essential hypertension Acute I10 Plantar verruca Acute B07.0 Nail dystrophy Acute L60.3 Onychomycosis Acute B35.1 Pain in left lumbar region of back Acute M54.50 Pain of left hip joint Acute M25.552 Osteopenia Acute M85.80 GERD (gastroesophageal reflux disease) Chronic K21.9 Bilateral tinnitus Acute H93.13 Hyperlipemia Acute E78.5 COVID Acute U07.1 Tinnitus, bilateral Acute H93.13 Asymmetrical sensorineural hearing loss Acute H90.3 Medical History Medical History Enthesopathy Fibrocystic breast disease (FCBD) Family hx colonic polyps Senile hyperkeratosis Actinic keratosis Surgical History Surgical History Vaginal hysterectomy Colonoscopy - IV Sedation (04/16/17) Tobacco Smoking/Tobacco Use Status: Never Passive smoking exposure: Yes Alcohol Alcohol Intake: current Alcohol intake frequency: holidays/special occasions only Substance Use Substance use: Never Substance use type: does not use Vital Signs and Lab Results Vital Signs Most Recent Vital Signs in EMR: Most Recent Vital Signs Temp Pulse Resp BP Pulse Ox 36.6 C 62 17 209/83 H 98 06/12/25 06:13 06/12/25 06:13 06/12/25 06:13 06/12/25 06:13 06/12/25 06:13 Imaging and Studies Imaging and Studies Study information below may be from another EMR and interpreted by another provider. Please see original notes in EMR for more complete details. EKG Summary: 10/09/22 Conclusion Sinus rhythm...normal P axis, V-rate 60- 99 Probable left atrial enlargement...P >50mS, <-0.10mV V1 Low voltage, precordial leads...precordial leads <1.0mV Anesthesia Assessment and Plan Anesthesia History Personal History: No History of Anesthesia Complications Family History: No Family History of Anesthesia Complications Exercise Tolerance Exercise Tolerance: Metabolic Equivalents>4 Pertinent Negatives Pertinent Negatives: No Symptoms of GERD, No Major Cardiovascular Symptoms or Complaints, No Major Pulmonary Symptoms or Complaints and No History of CVA/TIA Cardiac & Pulmonary Exam Cardiac Exam: Normal S1/S2 Heart Sounds Pulmonary Exam: Clear Bilateral Breath Sounds Implantable Cardiac Device Does patient have a Pacemaker or an ICD?: No Airway Exam Known Difficult Airway: No Mallampati Class: 1 Mouth Opening: Normal (> 3cm) Thyromental Distance: Greater than 3 cm Neck Range of Motion: Full ROM Neck Circumference: Normal Teeth Condition: Normal Dentition ASA Classification ASA Score: ASA 2 Emergency Case?: No NPO Status NPO Status: NPO Clears >2 hours, Solids >8 hours Anesthesia Plan Resuscitation Status: Full Code Anesthesia Technique: General Anesthesia Airway Planned: LMA Monitors Used: Standard Monitors Preoperative Comments:: Elevated BP, white coat syndrome.
--- NOTE | 2025-06-12 07:11 | W.PM.DSUDISC ---
Date of service: 06/12/25 Discharge Plan Disposition Patient Disposition: Home Condition: Stable Discharge Details Attending Provider: Armaan Barrientos Primary Care Provider: SERGIO MILLER Home Meds and New Rx's Prescriptions: New naproxen 250 mg tablet 250 mg PO BID PRN (Reason: moderate pain and swelling) Qty: 20 0RF Rx Instructions: take with a meal oxycodone 5 mg tablet 5 mg PO .q4-6h MDD 30 mg PRN (Reason: severe pain) Qty: 9 0RF aspirin 81 mg capsule 81 mg PO DAILY 14 Days Qty: 14 0RF Continued diclofenac sodium [Arthritis Pain (diclofenac)] 1 % gel 2 g topical QID Rx Instructions: apply to single elbow, wrist or hand; for hand includes palm/fingers/back of hand Shingrix (PF) 50 mcg/0.5 mL suspension for reconstitution 0.5 ml IM ONCE Rx Instructions: as a single dose cholecalciferol (vitamin D3) 25 mcg (1,000 unit) capsule 25 mcg PO DAILY ketoconazole 2 % cream 1 applic topical DAILY Qty: 120 6RF Rx Instructions: Apply to toenails once daily Shingrix (PF) 50 mcg/0.5 mL suspension for reconstitution 0.5 ml IM ONCE Rx Instructions: as a single dose omeprazole 20 MG capsule,delayed release(DR/EC) 20 mg PO DAILY hydrochlorothiazide 25 MG tablet 25 mg PO DAILY atorvastatin 10 mg tablet 10 mg PO DAILY Patient Comments: TAKE 1 TABLET BY MOUTH ONCE DAILY triamcinolone acetonide 0.1 % cream 1 applic TOPICAL PRN PRN Patient Comments: APPLY A SMALL AMOUNT TO SKIN TWICE DAILY Discharge Instructions Additional Instructions: Surgery: Left hip endoscopy with iliotibial band release and trochanteric bursectomy 06/12/25 Activity: Weightbearing as tolerated. May use crutches or walker as needed for a few days. Gradually advance to full range of motion and activity over the next few weeks. A physical therapy prescription will be provided separately in the office at follow up if needed. Prescriptions: Aspirin 81 mg take 1 daily to prevent a blood clot for 2 weeks, starting tomorrow Naproxen 250 mg take 1 every 12 hours with a meal as needed for moderate pain Oxycodone 5 mg take 1 every 4-6 hours as needed for severe pain You may use [id number] Tylenol (acetaminophen) as needed for mild pain. These pain medications may be taken all at once or in different combinations as needed. Also, recommend Colace (docusate) as a stool softener as surgery and pain medicine cause constipation. You may try [id number] diphenhydramine (Benadryl) 25-50 mg nightly as a sleep aid Dressings: Leave dressing in place for 3 days. May then remove and leave open to air or cover incisions with Band-Aids. Leave the sticky Steri-Strips in place until they fall off or remove them after you shower. May shower after 5 days. Follow-up: 10-[address] Barrientos You may take off the leg compression stockings this evening at home. You may also leave them on a few days longer if you have a history of leg swelling or edema. Let us know right away if you develop any redness, drainage, fevers, chest pain, or trouble breathing. Do not drink alcohol or drive for at least 24 hours after anesthesia. Please call the office during business hours with any questions or concerns. Stand Alone Forms: Anesthesia Discharge Inst., Anais Jewell (DSU) Referrals: Armaan Barrientos MD [ [facility] STAFF PHYSICIAN, Orthopaedic Surgical] - 06/23/25 1:45 pm Discharge Orders Discharge Orders: Discharge Order (Routine); Ordered 06/12/25 Ordered By: Zenia Garcia DS: Diagnosis Discharge Diagnosis (1) Trochanteric bursitis, left hip: Status: Acute (2) Iliotibial band syndrome affecting left lower leg: Status: Acute
--- NOTE | 2025-06-12 07:18 | W.PM.OP ---
Operative Note Operative Note PRE-OP DIAGNOSIS: Left hip 1. Iliotibial band syndrome 2. Trochanteric bursitis 3. Gluteal tendonopathy POST-OP DIAGNOSIS: same PROCEDURE: Left hip endoscopic 1. Iiliotibial band release, CPT# 74376 2. Trochanteric bursectomy, CPT# 30337 SURGEON: Armaan Barrientos ANESTHESIA TYPE: Local By Surgeon and General LMA/ETT Refer to Anesthesia Record ESTIMATED BLOOD LOSS: 5 Patient was transported to: PACU Patient's condition: stable Indications: Please see complete medical record for details. Findings: Thickened iliotibial band. Abundant inflamed trochanteric bursitis. Intact gluteal tendons. Procedure Description: In the operating room, general anesthesia was induced. The patient was positioned supine on the [place] operating room table. All bony prominences were well-padded. Preoperative antibiotics were administered. The hip was prepped and draped in the usual sterile fashion. The correct patient, procedure, and side of the procedure were all verified prior to incision. 30 cc of 0.25% bupivacaine containing epinephrine was infiltrated about the subcutaneous tissues for the planned anterior lateral and distal anterolateral portals as well as deeply over the greater trochanter. A knife was used to incise the skin for the anterior lateral and distal anterolateral portals followed by blunt dissection subcutaneously. Under fluoroscopic guidance, a switching stick and arthroscope were inserted localizing the iliotibial band over the greater trochanter. Blunt dissection and the mechanical shaver were used to resect fat and overlying tissue about the center of the iliotibial band and carefully expose the anterior and posterior margins. Once there was adequate exposure of the IT band, the greater trochanter was again localized under fluoroscopic guidance with a spinal needle inserted through the skin down to bone. This central area was marked using the radiofrequency ablator. A [employer] blade was brought in and used to create a 2 cm longitudinal incision in line with the IT band fibers as well as extending it in a cruciate fashion with 2 cm incisions anteriorly and posteriorly. The radiofrequency ablator was used to achieve hemostasis. The mechanical shaver was then used to debride the IT band released edges exposing the trochanteric bursa. The mechanical shaver was then used to excise the trochanteric bursa taking care to protect musculature about the margins of the greater trochanter as well as neurovascular structures especially posteriorly. There was excellent visualization of the vastus lateralis as well as gluteus medius confirming appropriate bursa excision. The gluteus gage was also visualized intact. The hip was brought through range of motion including internal and external rotation and there was no impinging iliotibial band tissue or remaining pathologic bursa. The viewing and working portals were switched and appropriate IT band release, trochanteric bursa excision, and hemostasis confirmed. Suction was used to remove fluid from the endoscopic space. The portals were closed using 3-0 Monocryl in a buried fashion. Steri-Strips were applied over the incisions followed by Xeroform, 4 x 4 gauze, an ABD pad, and secured with tape. Skin was cleansed of any residual adhesive from the drapes as best possible. The patient awoke from anesthesia without complication and was transferred to the recovery room in a stable condition. Date of Procedure: 06/12/25
[2025-06-12] MEDS: ceFAZolin 2 GM/50 ML BAG IVPB (07:30)
[2025-06-12] MEDS: TRANEXAMIC ACID/SOD. CHL. 1,000 MG/100 ML BAG 600 MG IVPB (07:39)
[2025-06-12] MEDS: Bupivacaine 0.25% Pres-Free W/EPI 30 ML VIAL (08:05)
[2025-06-12] MEDS: EPINEPHrine 10 MG/10 ML ML (08:06)
--- NOTE | 2025-06-12 08:40 | DI.RAD_ITS ---
Exam(s) XR HIP LT IN OR EXAM: XR HIP LT IN OR CLINICAL HISTORY: Trochanteric bursitis, left hip. TECHNIQUE: 2D digital imaging was performed. COMPARISON: No exams were available for comparison FINDINGS: Fluoroscopy was provided during orthopedic procedure on the left hip. See procedure report for details. Radiologist was not present during this procedure. IMPRESSION: Radiation exposure index/cumulative dose:Ka,r= 0.8744 mGy DATA REPOSITORY: RADIATION DOSE DELIVERED:
[2025-06-12] MEDS: fentaNYL 100 MCG/2 ML VIAL IVP ×3 (08:42→09:01)
--- NOTE | 2025-06-12 09:50 | W.ANESPOSTOP ---
Postoperative Evaluation Date, Time and Location Date Performed: 06/12/25 Time Performed: 09:52 Patient Location: Day Surgery Unit Vital Signs Most Recent Imported Vital Signs: Most Recent Vital Signs Temp Pulse Resp BP Pulse Ox 36.1 C L 48 L 16 140/72 95 06/12/25 09:20 06/12/25 09:20 06/12/25 09:20 06/12/25 09:20 06/12/25 09:20 Pain Score Most Recent Pain Score: Most Recent Pain Score Pain Level 1 06/12/25 09:20 Assessment Mental Status: Awake (Alert & Oriented to Patient Baseline) Airway and Respiratory Function: Patent airway with normal (patient baseline) respiratory exam Cardiovascular Function: Hemodynamically Stable Hydration Status: Adequately Hydrated Nausea & Vomiting: No Nausea or Vomiting Pain: Pain is tolerable per patient Peripheral Nerve Block: Patient did not receive a nerve block
== END 2025-06-12 10:30 | disposition home or self-care (01) ==
LOC: SUR 06:04
PROVIDERS: PCP Nurse Practitioner Family; Visit Provider Student in an Organized Health Care Education/Training Program
PROC: (CPT 29863; principal; 2025-06-12 07:30)
DX: M70.62 Trochanteric bursitis, left hip (principal); M76.32 Iliotibial band syndrome, left leg; M76.02 Gluteal tendinitis, left hip
CPT/HCPCS: 27062; 27305; 73501; J0690; J1100; J1885; J2003; J2405; J2704; J3010

== ENCOUNTER → 2025-06-23 13:31 | Outpatient (BNVA) | payer MEDICARE, SELFPAY | PROVIDERS: PCP Nurse Practitioner Family; Referring Provider Nurse Practitioner Family; Visit Provider Student in an Organized Health Care Education/Training Program | DX: Z47.89 Encounter for other orthopedic aftercare (principal); M76.32 Iliotibial band syndrome, left leg; M70.62 Trochanteric bursitis, left hip | CPT/HCPCS: 99024 ==

== ENCOUNTER → 2025-08-04 09:47 | Outpatient (BNVA) | payer MEDICARE, SELFPAY | PROVIDERS: PCP Nurse Practitioner Family; Referring Provider Nurse Practitioner Family; Visit Provider Podiatrist | DX: L60.3 Nail dystrophy (principal); B35.1 Tinea unguium; M79.671 Pain in right foot; M79.672 Pain in left foot | CPT/HCPCS: 99213 ==

== ENCOUNTER → 2025-08-18 12:51 | Outpatient (BNVA) | payer MEDICARE, SELFPAY | PROVIDERS: PCP Nurse Practitioner Family; Referring Provider Nurse Practitioner Family; Visit Provider Student in an Organized Health Care Education/Training Program | DX: Z47.89 Encounter for other orthopedic aftercare (principal); M70.62 Trochanteric bursitis, left hip; M76.32 Iliotibial band syndrome, left leg | CPT/HCPCS: 99024 ==

== ENCOUNTER → 2025-09-07 09:52 | Outpatient (BNVA) | payer MEDICARE, SELFPAY | PROVIDERS: PCP Nurse Practitioner Family; Referring Provider Nurse Practitioner Family; Visit Provider Podiatrist | DX: L60.3 Nail dystrophy (principal); B35.1 Tinea unguium; M67.01 Short Achilles tendon (acquired), right ankle; M79.671 Pain in right foot; M79.672 Pain in left foot; L84 Corns and callosities | CPT/HCPCS: 11750; 11755 ==

== ENCOUNTER → 2025-09-29 10:10 | Outpatient (BNVA) | payer MEDICARE, SELFPAY | PROVIDERS: PCP Nurse Practitioner Family; Referring Provider Nurse Practitioner Family; Visit Provider Podiatrist | DX: M79.671 Pain in right foot (principal); M79.672 Pain in left foot; L60.3 Nail dystrophy; B35.1 Tinea unguium; L84 Corns and callosities; M67.01 Short Achilles tendon (acquired), right ankle | CPT/HCPCS: 99213 ==